=== PATIENT | female | born 1995 | race Caucasian/White ===

== ENCOUNTER 2017-02-17 08:46 | Emergency (ER) | payer OTHER ==
[~2017-02-17] VITALS: Ht 162.6 cm; Wt 47.7 kg
[~2017-02-17 08:46] MED LIST: NORCOELIX PO; ZITHROMAX Z PA250 MG PO
[2017-02-17 08:50] VITALS: BP 145/87; TEMP 98.8
[2017-02-17] MEDS ORDERED: MICROGESTIN 1.51 TAB PO (08:54)
[2017-02-17] MEDS ORDERED: VALTREX 50500 MG/TAB PO (09:34)
[2017-02-17] MEDS ORDERED: NORCO 325 MG-51 TAB PO (09:38)
[2017-02-17 10:28] VITALS: PULSE 84
== END 2017-02-17 10:28 | disposition home or self-care (01) ==
LOC: COL.ER 08:46
DX: B02.9 Zoster without complications (principal)